=== PATIENT | male | born 1970 ===

== ENCOUNTER 2017-10-18 11:31 | Outpatient (CLI) | payer OTHER ==
[2017-10-23] MEDS ORDERED: ZOCOR5 MG PO (11:27)
== END 2017-10-18 11:54 | disposition home or self-care (01) ==
LOC: EDBD 11:31 → RAD 11:31 → LAB 11:31 → RAD 11:54
DX: K40.90 Unilateral inguinal hernia, without obstruction or gangrene, not specified as recurrent (principal)

== ENCOUNTER 2017-10-24 06:10 | Day surgery (SDC) | payer OTHER ==
[~2017-10-24 06:10] MED LIST: ZOCOR5 MG PO
[2017-10-24] MEDS ORDERED: SURFAK240 M1 PO (07:26)
[2017-10-24] MEDS ORDERED: POLY119PG PO (07:26)
[2017-10-24] MEDS ORDERED: ULTRACET PO (07:26)
== END 2017-10-24 10:50 | disposition home or self-care (01) ==
LOC: EDBD → CIR.AMB 06:10
DX: K40.90 Unilateral inguinal hernia, without obstruction or gangrene, not specified as recurrent (principal); K42.9 Umbilical hernia without obstruction or gangrene; K43.9 Ventral hernia without obstruction or gangrene